=== PATIENT | female | born 1980 | race Caucasian/White ===

== ENCOUNTER 2017-05-10 15:37 | Emergency (ER) | payer SELFPAY ==
[~2017-05-10 15:37] MED LIST: ERYTOIN10 LEFT EYE; IBUP800T23 PO
[2017-05-10 15:39] VITALS: BP 128/86; PULSE 77; RESP 12; TEMP 99; O2SAT 99
[2017-05-10 16:11] LABS: BACTERIA, URINE OCC /hpf; BLOOD, URINE NEG (NEG); COMMENT (UR) CULTURE INDICATED; CULTURE IF INDICATED CULTURE INDICATED; GLUCOSE,URINE NEG (NEG); KETONE, URINE NEG (NEG); MUCUS URINE FEW /lpf (OCC); NITRITE,URINE NEG (NEG); PH, URINE 5.5 (5.0-8.5); SQUAMOUS EPITHELIAL CELL URINE 2 /hpf (0-5); URINE COLOR YELLOW (YELLW/STRAW)
--- NOTE | 2017-05-10 17:02 | PD ---
HPI Chief Complaint: Complaint Time Seen by Provider: 16:54 Travel History International Travel<30 days: No Contact w/Intl Traveler<30days: No Traveled to known affect area: No History of Present Illness HPI 37-year-old female presents to emergency department complaining of low back pain and cloudy urine since this morning. Patient states that she took ibuprofen she still having pain. States the pain is mild and does not radiate. Nothing makes it better or worse. Patient denies fever, chills, dysuria, hematuria, nausea, vomiting, diarrhea, or rashes. 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 Patient denies any chronic medication use. Patient does not usually have urinary tract infections and does not have a history of kidney stones. PFSH Past Medical History Hx Anticoagulant Therapy: No Autoimmune Disease: Yes (ITP) Cardiovascular Problems: No Chemotherapy: No Cerebrovascular Accident: No Diabetes: No Respiratory: No ?: Unknown : 2 Para: 2 Past Surgical History Abdominal Surgery: Yes (SPLENECTOMY) Hysterectomy: No Other Surgery: Yes (spleenectomy ) Social History Alcohol Use: No Tobacco Use: Yes Substance Use: No Allergies-Medications (Allergen,Severity, Reaction): Coded Allergies: codeine (Unverified Allergy, Mild, 05/10/17) Reported Meds & Prescriptions Reported Meds & Active Scripts Active Macrobid (Nitrofurantoin Monoh/Nitrofur Macro) 100 Mg Cap 100 Mg PO BID 7 Days Ibuprofen 800 Mg Tab 800 Mg PO Q6H PRN Erythromycin (Erythromycin (Ophth)) Op Oin 1 Applic LEFT EYE Q6HR 7 Days Review of Systems Except as stated in HPI: all other systems reviewed are Neg Physical Exam Narrative GENERAL: Well-nourished, well-developed patient. SKIN: Focused skin assessment warm/dry. HEAD: Normocephalic. EYES: No scleral icterus. No injection or drainage. NECK: Supple, trachea midline. No JVD or lymphadenopathy. GASTROINTESTINAL: Abdomen soft, non-tender, nondistended. MUSCULOSKELETAL: No cyanosis, or edema. BACK: Nontender without obvious deformity. No CVA tenderness. Pain nonreproducible with palpation Data Data Last Documented VS Vital Signs Date Time Temp Pulse Resp B/P (MAP) Pulse Ox O2 Delivery O2 Flow Rate FiO2 05/10/17 17:30 05/10/17 15:39 99.0 77 12 99 Orders Orders Urinalysis - C+S If Indicated (05/10/17 15:49) Urine Culture (05/10/17 15:50) Ed Discharge Order (05/10/17 17:07) Labs Laboratory Tests Test 05/10/17 15:50 Urine Color YELLOW Urine Turbidity CLEAR Urine pH 5.5 Urine Specific [place] 1.028 Urine Protein TRACE mg/dL Urine Glucose (UA) NEG mg/dL Urine Ketones NEG mg/dL Urine Occult Blood NEG Urine Nitrite NEG Urine Bilirubin NEG Urine Urobilinogen LESS THAN 2.0 MG/DL Urine Leukocyte Esterase SMALL Urine RBC 3 /hpf Urine WBC 8 /hpf Urine Squamous Epithelial Cells 2 /hpf Urine Bacteria OCC /hpf Urine Mucus FEW /lpf Microscopic Urinalysis Comment CULTURE INDICATED MDM Medical Decision Making Medical Screen Exam Complete: Yes Emergency Medical Condition: Yes Differential Diagnosis Acute lumbago versus urinary tract infection versus cystitis versus muscle spasms Narrative Course 37-year-old female presents to emergency department complaining of low back pain and cloudy urine since this morning. Patient states that she took ibuprofen she still having pain. States the pain is mild and does not radiate. Nothing makes it better or worse. Patient denies fever, chills, dysuria, hematuria, nausea, vomiting, diarrhea, or rashes. 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 Patient denies any chronic medication use. Patient does not usually have urinary tract infections and does not have a history of kidney stones. Denies any unusual rashes or bruising. Vital signs stable Physical exam- low back pain nonreproducible with palpation. UA- consistent with a urinary tract infection Patient will be treated with Macrobid. Patient to follow up with primary care physician within 2-3 days. Return to the emergency department for worsening or persistent symptoms. Diagnosis Primary Impression: Urinary tract infection Qualified Codes: N30.00 - Acute cystitis without hematuria Referrals: Primary Care Physician Additional Instructions: Ensure a nutritious diet with plenty of fluid intake. Take medication as prescribed. May use [id number] ibuprofen per package instructions for relief. Scripts Nitrofurantoin Monohydrate Macrocrystals (Macrobid) 100 Mg Cap 100 MG PO BID for Infection for 7 Days, #14 CAP 0 Refills Prov: Alphonso Vasquez MD 05/10/17 Disposition: 01 DISCHARGE HOME Condition: Stable Kacy Reveles May 10, 2017 17:02
[2017-05-10] MEDS ORDERED: MACR100C2 PO (17:04)
== END 2017-05-10 17:43 | disposition home or self-care (01) ==
LOC: NEPK 15:37
DX: N39.0 Urinary tract infection, site not specified (principal); B96.20 Unspecified Escherichia coli [E. coli] as the cause of diseases classified elsewhere; D69.3 Immune thrombocytopenic purpura; Z88.5 Allergy status to narcotic agent; Z79.899 Other long term (current) drug therapy; Z72.0 Tobacco use
CPT/HCPCS: 81001; 87077; 87086; 87186; 99283

== ENCOUNTER 2017-08-02 16:14 | Emergency (ER) | payer SELFPAY ==
[~2017-08-02 16:14] MED LIST changes: +MACR100C2 PO
[2017-08-02 16:15] VITALS: BP 134/82; PULSE 81; RESP 12; TEMP 98.3; O2SAT 98
[2017-08-02] MEDS ORDERED: SODIUM CHLOR 0.9% 1000 ML INJ 1,000 ML IV SCH (16:49)
[2017-08-02] MEDS ORDERED: KETOROLAC TROMETHAMINE 30 MG/ML (IVP) VIAL IVP ONE (17:00)
[2017-08-02] MEDS ORDERED: DICYCLOMINE HCL 10 MG CAP PO ONE (17:00)
[2017-08-02] MEDS ORDERED: FAMOTIDINE 20 MG/2 ML VIAL IV PUSH ONE (17:00)
[2017-08-02] MEDS ORDERED: SODIUM CHLORIDE 0.9% FLUSH 10 ML FLUSH IV FLUSH PRN (17:00)
[2017-08-02] MEDS ORDERED: ONDANSETRON HCL 4 MG/2 ML VIAL IVP ONE (17:00)
--- NOTE | 2017-08-02 17:09 | PD ---
HPI Chief Complaint: GI Complaint Time Seen by Provider: 16:28 Travel History International Travel<30 days: No Contact w/Intl Traveler<30days: No Traveled to known affect area: No History of Present Illness HPI 37-year-old female presents the emergency department with history of nausea, vomiting, and diarrhea which started 3 days prior to arrival. Patient states she is a [employer] at a local [employer] who had similar illness in house. Patient states it started [place] night and progressed through the weekend. PFSH Past Medical History Hx Anticoagulant Therapy: No Autoimmune Disease: Yes (ITP) Cardiovascular Problems: No Chemotherapy: No Cerebrovascular Accident: No Diabetes: No Respiratory: No Immunizations Current: Yes ?: Not LMP: 07/15/2017 : 5 Para: 2 Miscarriage: 3 Past Surgical History Abdominal Surgery: Yes (SPLENECTOMY) Hysterectomy: No Other Surgery: Yes (spleenectomy ) Social History Alcohol Use: Yes (rare) Tobacco Use: No Substance Use: No Allergies-Medications (Allergen,Severity, Reaction): Coded Allergies: codeine (Verified Allergy, Mild, 08/02/17) Reported Meds & Prescriptions Reported Meds & Active Scripts Active Bentyl (Dicyclomine HCl) 10 Mg Cap 10 Mg PO QID Zofran (Ondansetron HCl) 4 Mg Tab 4 Mg PO Q6HR PRN Physical Exam Narrative GENERAL: Patient appears in no acute distress per SKIN: Warm and dry. HEAD: Atraumatic. Normocephalic. EYES: Pupils equal and round. No scleral icterus. No injection or drainage. ENT: No nasal bleeding or discharge. Mucous membranes pink and moist. Pharynx is clear. Airway is patent. NECK: Trachea midline. Supple and nontender CARDIOVASCULAR: Regular rate and rhythm. RESPIRATORY: No accessory muscle use. Clear to auscultation. Breath sounds equal bilaterally. GASTROINTESTINAL: Abdomen soft, mild to moderate diffuse tenderness, nondistended. No CVA tenderness. Hepatic and splenic margins not palpable. MUSCULOSKELETAL: Extremities without clubbing, cyanosis, or edema. No obvious deformities. NEUROLOGICAL: Awake and alert. No obvious cranial nerve deficits. Motor grossly within normal limits. Five out of 5 muscle strength in the arms and legs. Normal speech. PSYCHIATRIC: Appropriate mood and affect; insight and judgment normal. Data Data Last Documented VS Vital Signs Date Time Temp Pulse Resp B/P (MAP) Pulse Ox O2 Delivery O2 Flow Rate FiO2 08/02/17 16:15 98.3 81 12 134/82 (99) 98 Orders Orders Complete Blood Count With Diff (08/02/17 16:49) Comprehensive Metabolic Panel (08/02/17 16:49) Lipase (08/02/17 16:49) Lactic Acid (08/02/17 16:49) Urinalysis - C+S If Indicated (08/02/17 16:49) Abdomen, Flat & Upright (08/02/17 ) Iv Access Insert/Monitor (08/02/17 16:49) Ecg Monitoring (08/02/17 16:49) Oximetry (08/02/17 16:49) Ondansetron Inj (Zofran Inj) (08/02/17 17:00) Sodium Chlor 0.9% 1000 Ml Inj (Ns 1000 M (08/02/17 16:49) Sodium Chloride 0.9% Flush (Ns Flush) (08/02/17 17:00) Famotidine Inj (Pepcid Inj) (08/02/17 17:00) Dicyclomine (Bentyl) (08/02/17 17:00) Ketorolac Inj (Toradol Inj) (08/02/17 17:00) Ed Urine Pregnancytest Poc (08/02/17 16:49) Influenzae A/B Antigen (08/02/17 17:21) Ed Discharge Order (08/02/17 18:37) Labs Laboratory Tests Test 08/02/17 17:08 08/02/17 17:20 Urine Color YELLOW Urine Turbidity HAZY Urine pH 6.0 Urine Specific [place] 1.034 Urine Protein 30 mg/dL Urine Glucose (UA) NEG mg/dL Urine Ketones NEG mg/dL Urine Occult Blood SMALL Urine Nitrite NEG Urine Bilirubin NEG Urine Urobilinogen 2.0 MG/DL Urine Leukocyte Esterase SMALL Urine RBC 5 /hpf Urine WBC 2 /hpf Urine Squamous Epithelial Cells 8 /hpf Urine Calcium Oxalate Crystals FEW /hpf Urine Bacteria RARE /hpf Urine Mucus MANY /lpf Microscopic Urinalysis Comment CULT NOT INDICATED White Blood Count 7.5 TH/MM3 Red Blood Count 4.36 MIL/MM3 Hemoglobin 14.4 GM/DL Hematocrit 41.8 % Mean Corpuscular Volume 96.0 FL Mean Corpuscular Hemoglobin 33.1 PG Mean Corpuscular Hemoglobin Concent 34.4 % Red Cell Distribution Width 13.1 % Platelet Count 85 TH/MM3 Mean Platelet Volume 9.6 FL Neutrophils (%) (Auto) 46.4 % Lymphocytes (%) (Auto) 39.3 % Monocytes (%) (Auto) 11.0 % Eosinophils (%) (Auto) 2.6 % Basophils (%) (Auto) 0.7 % Neutrophils # (Auto) 3.5 TH/MM3 Lymphocytes # (Auto) 3.0 TH/MM3 Monocytes # (Auto) 0.8 TH/MM3 Eosinophils # (Auto) 0.2 TH/MM3 Basophils # (Auto) 0.1 TH/MM3 CBC Comment AUTO DIFF Blood Urea Nitrogen 11 MG/DL Creatinine 0.67 MG/DL Random Glucose 85 MG/DL Total Protein 7.3 GM/DL Albumin 3.4 GM/DL Calcium Level 8.5 MG/DL Alkaline Phosphatase 70 U/L Aspartate Amino Transf (AST/SGOT) 18 U/L Alanine Aminotransferase (ALT/SGPT) 20 U/L Total Bilirubin 0.1 MG/DL Sodium Level 141 MEQ/L Potassium Level 3.7 MEQ/L Chloride Level 107 MEQ/L Carbon Dioxide Level 27.3 MEQ/L Anion Gap 7 MEQ/L Estimat Glomerular Filtration Rate 98 ML/MIN Lactic Acid Level 1.2 mmol/L Lipase 102 U/L MDM Medical Decision Making Medical Screen Exam Complete: Yes Emergency Medical Condition: Yes Differential Diagnosis Nausea and vomiting. Diarrhea. Abdominal pain. UTI. Narrative Course Patient appears medically stable at time of exam. Labs ordered including CBC, CMP, lipase, lactic acid, urinalysis, and urine test. IV access is obtained and the patient is given 4 mg Zofran IV as well as 10 mg Bentyl p.o. Patient is given Pepcid 20 mg IV as well. Patient is given 30 mg Toradol IV. Patient is given 1000 mL normal saline bolus. Rapid influenza is ordered. Abdominal x-ray was ordered, and shows no acute process or obstruction. CBC is unremarkable. Chemistry is unremarkable, and lactic acid is normal at 1.2. Urinalysis is concentrated but otherwise unremarkable without signs of infection. Rapid influenza was negative. Patient is felt to have a viral gastroenteritis. Patient is given Zofran 4 mg every 6 hours as needed nausea vomiting, #12. Patient is given Bentyl 10 mg every 6 hours as needed cramping #20 per Patient can take Tylenol and ibuprofen as needed. Patient should rest and push fluids and follow-up if symptoms do not improve in the next several days. Diagnosis Primary Impression: Gastroenteritis and colitis, viral Referrals: Primary Care Physician Patient Instructions: Acute Diarrhea (ED), Acute Nausea and Vomiting (ED), General Instructions Departure Forms: Work Release Enter return to work date: Aug 04, 2017 Additional Instructions: Abdominal x-ray was ordered, and shows no acute process or obstruction. CBC is unremarkable. Chemistry is unremarkable, and lactic acid is normal at 1.2. Urinalysis is concentrated but otherwise unremarkable without signs of infection. Rapid influenza was negative. Patient is felt to have a viral gastroenteritis. Patient is given Zofran 4 mg every 6 hours as needed nausea vomiting, #12. Patient is given Bentyl 10 mg every 6 hours as needed cramping #20 per Patient can take Tylenol and ibuprofen as needed. Patient should rest and push fluids and follow-up if symptoms do not improve in the next several days. Med/Other Pt SpecificInfo: Prescription(s) given Scripts Dicyclomine (Bentyl) 10 Mg Cap 10 MG PO QID for Bowel Management, #20 CAP 0 Refills Prov: Mateo Rodriguez MD 08/02/17 Ondansetron (Zofran) 4 Mg Tab 4 MG PO Q6HR Y for NAUSEA OR VOMITING, #12 TAB 0 Refills Prov: Mateo Rodriguez MD 08/02/17 Disposition: 01 DISCHARGE HOME Condition: Stable Jet Beaver Aug 02, 2017 17:09
--- NOTE | 2017-08-02 17:18 | RADRPT ---
EXAM DATE/TIME: 08/02/2017 17:03 [facility] COMPARISON: No previous studies available for comparison. INDICATIONS : Umbilical and epigastric pain with nausea and diarrhea. MEDICAL HISTORY : Idiopathic thrombocytopenic purpura. SURGICAL HISTORY : Splenectomy. ENCOUNTER: Initial ACUITY: 3 days PAIN SCORE: 4/10 LOCATION: Bilateral upper quadrant abdomen FINDINGS: Supine and upright views of the abdomen were performed. The abdominal bowel gas pattern is normal. No air fluid levels are seen. Multiple surgical clips in the left upper quadrant consistent with his tory of splenectomy. No abnormal masses, calcifications, or organomegaly is seen. The visualized low er lungs are clear. No evidence of free intraperitoneal gas. The osseous structures are unremarkabl e. CONCLUSION: 1. Unremarkable abdominal radiographs. Nonobstructive bowel gas pattern. Cecilio Nichols MD on August 02, 2017 at 17:15 Board Certified Radiologist. This report was verified electronically.
[2017-08-02 17:41] LABS: AUTOMATED NEUTROPHIL # 3.5 TH/MM3 (1.8-7.7); BASOPHIL # 0.1 TH/MM3 (0-0.2); BASOPHIL % 0.7 % (0.0-2.0); EOSINOPHIL # 0.2 TH/MM3 (0-0.4); EOSINOPHIL % 2.6 % (0.0-4.0); HEMATOCRIT 41.8 % (35.0-46.0); HEMOGLOBIN 14.4 GM/DL (11.6-15.3); LYMPH % 39.3 % (9.0-44.0); MEAN CORPUSCULAR HEMOGLOBIN 33.1 PG (27.0-34.0); MEAN CORPUSCULAR HGB CONC 34.4 % (32.0-36.0); MEAN PLATELET VOLUME 9.6 FL (7.0-11.0); MONOCYTE # 0.8 TH/MM3 (0-0.9); NEUT % 46.4 % (16.0-70.0); PLATELET COUNT 85 TH/MM3 (150-450); RED BLOOD COUNT 4.36 MIL/MM3 (4.00-5.30); RED CELL DISTRIBUTION WIDTH 13.1 % (11.6-17.2); WHITE BLOOD COUNT 7.5 TH/MM3 (4.0-11.0)
[2017-08-02 17:43] LABS: BACTERIA, URINE RARE /hpf; BILIRUBIN, URINE NEG (NEG); BLOOD, URINE SMALL (NEG); CALCIUM OXALATE CRYSTALS,URINE FEW /hpf; GLUCOSE,URINE NEG (NEG); KETONE, URINE NEG (NEG); MUCUS URINE MANY /lpf (OCC); NITRITE,URINE NEG (NEG); SQUAMOUS EPITHELIAL CELL URINE 8 /hpf (0-5); URINE COLOR YELLOW (YELLW/STRAW); URINE LEUKOCYTE ESTERASE SMALL (NEG)
[2017-08-02 17:51] LABS: ALBUMIN 3.4 GM/DL (3.4-5.0); ALT (GPT) 20 U/L (10-53); AST (GOT) 18 U/L (15-37); BICARBONATE 27.3 MEQ/L (21.0-32.0); BLOOD UREA NITROGEN 11 MG/DL (7-18); CALCIUM 8.5 MG/DL (8.5-10.1); CHLORIDE 107 MEQ/L (98-107); CREATININE 0.67 MG/DL (0.50-1.00); GLOMERULAR FILTRATION RATE 98 ML/MIN (>89); GLUCOSE,RANDOM 85 MG/DL (74-106); SODIUM (NA) 141 MEQ/L (136-145)
[2017-08-02 17:53] LABS: ALKALINE PHOSPHATASE 70 U/L (45-117); TOTAL BILIRUBIN ADULT 0.1 MG/DL (0.2-1.0); TOTAL PROTEIN 7.3 GM/DL (6.4-8.2)
[2017-08-02] MEDS ORDERED: ZOFR4TAB PO (18:32)
[2017-08-02] MEDS ORDERED: DICY10 PO (18:32)
== END 2017-08-02 18:58 | disposition home or self-care (01) ==
LOC: NEPD 16:14
DX: A08.4 Viral intestinal infection, unspecified (principal); R19.7 Diarrhea, unspecified
CPT/HCPCS: 74019; 80053; 81001; 83605; 83690; 84703; 85025; 87804; 96361; 96374; 96375; 99284; J1885; J2405; J7030